=== PATIENT | male | born 1955 | race Caucasian/White ===

== ENCOUNTER 2024-02-24 00:27 | Emergency (ER) | payer MEDICARE, MEDICAID ==
[~2024-02-24] VITALS: Ht 177.8 cm; Wt 82.0 kg
[2024-02-24 00:29] VITALS: BP 165/86; PULSE 79; TEMP 97.7; O2SAT 98
[2024-02-24] MEDS ORDERED: IBUP-2028 MT (02:49)
[2024-02-24 03:00] VITALS: RESP 18
== END 2024-02-24 03:35 | disposition home or self-care (01) ==
LOC: ER 00:27
DX: R05.9 Cough, unspecified (principal); R53.1 Weakness
CPT/HCPCS: 71045; 99283